=== PATIENT | male | born 1980 | race Two or more races ===

== ENCOUNTER 2020-12-21 23:42 | Inpatient (IN) | payer MEDICAID, OTHER ==
[~2020-12-21] VITALS: Ht 172.7 cm; Wt 74.3 kg
[2020-12-22] MEDS ORDERED: MORPHINE SULFATE 4 MG/ML SYR/VIAL IV ONE (00:15)
[2020-12-22] MEDS ORDERED: SODIUM CHLORIDE 0.9% 500 ML IVB ONE (00:15)
[2020-12-22 00:17] LABS: Urine Bacteria NONE SEEN /hpf (None Seen); Urine Blood Negative /uL (Negative); Urine Mucus FEW (None Seen); Urine Specific Gravity 1.014 (1.001-1.035); Urine WBC 1 /hpf (0 - 3)
[2020-12-22 00:20] LABS: Red Blood Cells 4.33 10^6/uL (4.5-5.90); Red Cell Distribution Width 15.5 % (11.8-14.3)
[2020-12-22 00:32] LABS: Albumin 2.7 g/dL (3.4-5.0); Amylase 61 U/L (25-115); Anion Gap 11 (5-15); Carbon Dioxide 24 mmol/L (21-32); Chloride 93 mmol/L (98-107); Glucose 193 mg/dL (74-106); Potassium 4.6 mmol/L (3.5-5.1); Sodium 128 mmol/L (136-145)
[2020-12-22 00:35] LABS: Bilirubin, Total 2.3 mg/dL (0.2-1.0); GFR African American 142 mL/min; GFR Non-African American 117 mL/min; Lipase 1111 U/L (73-393)
[2020-12-22 01:25] LABS: Hematocrit 41.8 % (41.0-53.0); Hemoglobin 16.2 g/dL (13.5-17.5); Mean Corpuscular Hemoglobin 37.4 pg (28.0-32.0); Mean Corpuscular Volume 96.5 fL (80.0-100.0)
[2020-12-22 01:30] LABS: BUN/Creatinine Ratio 12.8; Blood Urea Nitrogen 10 mg/dL (7-18); Total Protein 9.5 g/dL (6.4-8.2)
[2020-12-22 01:32] LABS: Basophils % (manual) 0 (0.0-2.0); Blast Cells 0; Mean Corpuscular Hgb Conc. 38.7 g/dL (32.0-36.0); Metamyelocytes % 0; Myelocytes % 0; Promyelocytes % 0; Reactive Lymphocytes 0
[2020-12-22 01:44] LABS: Alkaline Phosphatase 95 U/L (45-117)
[2020-12-22 02:05] LABS: Aspartate Aminotransferase 130 U/L (15-37)
[2020-12-22 02:08] LABS: Band Neutrophils % (manual) 3; Eosinophils % (manual) 1 (0-7); Lymphocytes % (manual) 30 (10.0-50.0); Monocytes % (manual) 3 (0-12)
[2020-12-22 02:23] LABS: Calcium < 5.0 mg/dL (8.5-10.1)
[2020-12-22] MEDS ORDERED: CALCIUM CHL 100MG/ML 2,000 MG in D5W 5% 100 ML IV ONE (02:45)
[2020-12-22] MEDS: ONDANSETRON HCL 4 MG/2 ML VIAL IV ONE ×2 (03:18→06:33)
[2020-12-22 03:34] LABS: Alanine Aminotransferase 75 U/L (16-61)
[2020-12-22] MEDS ORDERED: ONDANSETRON HCL 4 MG/2 ML VIAL ONE (06:27)
[2020-12-22] MEDS ORDERED: ONDANSETRON HCL 4 MG/2 ML VIAL IV ONE (10:15)
[2020-12-22 20:24] LABS: Albumin 2.6 g/dL (3.4-5.0); Calcium 8.1 mg/dL (8.5-10.1); Potassium 5.4 mmol/L (3.5-5.1)
[2020-12-22 20:34] LABS: Bilirubin, Total 3.9 mg/dL (0.2-1.0)
[2020-12-22 20:51] LABS: BUN/Creatinine Ratio 13.9; Total Protein 7.6 g/dL (6.4-8.2)
[2020-12-22] MEDS ORDERED: SODIUM ZIRCONIUM CYCL 10 GM PAK PO ONE (21:00)
[2020-12-22] MEDS ORDERED: PANTOPRAZOLE 40 MG/10 ML VIAL INJ IV ONE (21:00)
[2020-12-22] MEDS: SODIUM CHLORIDE 0.9% 1,000 ML IV SCH ×2 (21:00→22:00)
[2020-12-22] MEDS: ONDANSETRON HCL 4 MG/2 ML VIAL IV PRN (22:44)
[2020-12-22] MEDS: MORPHINE SULFATE 4 MG/ML SYR/VIAL IV PRN (22:44)
[2020-12-22] MEDS ORDERED: SODIUM CHLORIDE 0.9% 500 ML IV ONE (22:45)
[2020-12-23 07:28] LABS: Basophils # (auto) 0.1 10 ^3/uL (0-0.2); Basophils % (auto) 1.1 % (0.0-2.0); Eosinophils # (auto) 0 10 ^3/uL (0-0.8); Hematocrit 39.7 % (41.0-53.0); Hemoglobin 14.6 g/dL (13.5-17.5); Lymphocytes # (auto) 0.7 10 ^3/uL (0.4-5.4); Lymphocytes % (auto) 5.8 % (10.0-50.0); Mean Corpuscular Hemoglobin 36.1 pg (28.0-32.0); Mean Corpuscular Volume 98.3 fL (80.0-100.0); Monocytes # (auto) 0.8 10 ^3/uL (0-1.3); Monocytes % (auto) 6.6 % (0.0-12.0); Neutrophils # (auto) 11.1 10 ^3/uL (1.6-8.6); Neutrophils % (auto) 86.5 % (37.0-80.0); Nucleated Red Blood Cells % 0.1 %; Red Blood Cells 4.04 10^6/uL (4.5-5.90); White Blood Cell 12.9 10^3/uL (4.4-10.8)
[2020-12-23 07:29] LABS: Mean Corpuscular Hgb Conc. 36.8 g/dL (32.0-36.0)
[2020-12-23] MEDS: ONDANSETRON HCL 4 MG/2 ML VIAL IV PRN ×3 (07:50→09:41)
[2020-12-23] MEDS: MORPHINE SULFATE 4 MG/ML SYR/VIAL IV PRN ×5 (07:50→09:45)
[2020-12-23 07:56] LABS: Albumin 2.3 g/dL (3.4-5.0); Calcium 7.6 mg/dL (8.5-10.1); Potassium 4.9 mmol/L (3.5-5.1)
[2020-12-23 08:02] LABS: BUN/Creatinine Ratio 13.4; Bilirubin, Total 3.6 mg/dL (0.2-1.0); Total Protein 7.6 g/dL (6.4-8.2)
[2020-12-23] MEDS: PANTOPRAZOLE 40 MG/10 ML VIAL INJ IV SCH (10:13)
[2020-12-23] MEDS ORDERED: LORazepam 2MG/ML-1ML VIAL IV PRN (10:45)
[2020-12-23] MEDS ORDERED: LABETALOL HCL 5 MG/ML 4ML SYRINGE IV PRN ×2 (10:45)
[2020-12-23] MEDS: LACTATED RINGER'S 1,000 ML IV SCH ×2 (11:20→18:45)
[2020-12-23] MEDS ORDERED: MORPHINE SULFATE INJECTION 2 MG/ML SYRG IV PRN (11:45)
[2020-12-23] MEDS ORDERED: NITROGLYCERIN 0.4 MG SL TAB SL PRN (11:45)
[2020-12-23 12:40] VITALS: BP 141/87
[2020-12-23] MEDS: chlordiazePOXIDE HCL 25 MG CAP PO SCH ×2 (13:54→18:04)
[2020-12-23] MEDS: SODIUM CHLOR 0.9% PF (SALINE LOCK) 10ML VIAL/SYR IV SCH ×2 (15:01→21:51)
[2020-12-23 16:24] VITALS: BP 135/93
[2020-12-23] MEDS: FOLIC ACID 1 MG, MULTIPLE VITAMIN 10 ML, MAGNESIUM SULF SDV 50% 8 MEQ, THIAMINE INJ 100... INJ SCH ×5 (18:04)
[2020-12-23 22:00] VITALS: BP 126/92
[2020-12-24] MEDS: chlordiazePOXIDE HCL 25 MG CAP PO SCH ×4 (00:26→18:01)
[2020-12-24 05:00] VITALS: BP 133/85
[2020-12-24] MEDS: LACTATED RINGER'S 1,000 ML IV SCH ×3 (05:24→18:19)
[2020-12-24 05:35] LABS: Eosinophils # (auto) 0 10 ^3/uL (0-0.8); Neutrophils # (auto) 10.3 10 ^3/uL (1.6-8.6)
[2020-12-24 05:38] LABS: Basophils # (auto) 0 10 ^3/uL (0-0.2); Basophils % (auto) 0.3 % (0.0-2.0); Eosinophils % (auto) 0.3 % (0.0-7.0); Mean Corpuscular Hemoglobin 34.8 pg (28.0-32.0); Mean Corpuscular Volume 99.5 fL (80.0-100.0); Monocytes # (auto) 0.8 10 ^3/uL (0-1.3); Monocytes % (auto) 6.9 % (0.0-12.0); Neutrophils % (auto) 84.5 % (37.0-80.0); Red Blood Cells 4.02 10^6/uL (4.5-5.90); Red Cell Distribution Width 14.9 % (11.8-14.3); White Blood Cell 12.2 10^3/uL (4.4-10.8)
[2020-12-24] MEDS: SODIUM CHLOR 0.9% PF (SALINE LOCK) 10ML VIAL/SYR IV SCH ×3 (06:18→22:02)
[2020-12-24 07:17] LABS: Albumin 2.1 g/dL (3.4-5.0); Calcium 8.2 mg/dL (8.5-10.1)
[2020-12-24 07:20] LABS: Bilirubin, Total 3.3 mg/dL (0.2-1.0); Total Protein 7.4 g/dL (6.4-8.2)
[2020-12-24 07:31] LABS: BUN/Creatinine Ratio 16.8
[2020-12-24 09:00] VITALS: BP 130/81
[2020-12-24] MEDS ORDERED: cefTRIAXone 1GM/50ML D5W 50 ML IV SCH (09:00)
[2020-12-24] MEDS: PANTOPRAZOLE 40 MG/10 ML VIAL INJ IV SCH (10:28)
[2020-12-24] MEDS: ENOXAPARIN SOD 40 MG/0.4 ML SYRINGE SC SCH (10:36)
[2020-12-24 13:00] VITALS: BP 124/70
[2020-12-24] MEDS: FOLIC ACID 1 MG, MULTIPLE VITAMIN 10 ML, MAGNESIUM SULF SDV 50% 8 MEQ, THIAMINE INJ 100... INJ SCH ×5 (13:30)
[2020-12-24] MEDS: ACETAMINOPHEN 325 MG TAB PO PRN (16:05)
[2020-12-24 17:00] VITALS: BP 124/76
[2020-12-24 22:00] VITALS: BP 119/73
[2020-12-25] MEDS: chlordiazePOXIDE HCL 25 MG CAP PO SCH ×5 (00:30→23:16)
[2020-12-25] MEDS: LACTATED RINGER'S 1,000 ML IV SCH ×3 (01:13→22:45)
[2020-12-25 05:00] VITALS: BP 115/79
[2020-12-25] MEDS: SODIUM CHLOR 0.9% PF (SALINE LOCK) 10ML VIAL/SYR IV SCH ×3 (06:22→22:26)
[2020-12-25 06:23] LABS: Eosinophils # (auto) 0.2 10 ^3/uL (0-0.8); Red Cell Distribution Width 14.5 % (11.8-14.3)
[2020-12-25 06:25] LABS: Basophils # (auto) 0.1 10 ^3/uL (0-0.2); Basophils % (auto) 0.6 % (0.0-2.0); Eosinophils % (auto) 1.9 % (0.0-7.0); Hematocrit 34.6 % (41.0-53.0); Hemoglobin 12.2 g/dL (13.5-17.5); Lymphocytes # (auto) 1.1 10 ^3/uL (0.4-5.4); Lymphocytes % (auto) 11.4 % (10.0-50.0); Mean Corpuscular Hemoglobin 34.8 pg (28.0-32.0); Mean Corpuscular Hgb Conc. 35.1 g/dL (32.0-36.0); Mean Corpuscular Volume 99.1 fL (80.0-100.0); Monocytes # (auto) 0.9 10 ^3/uL (0-1.3); Neutrophils # (auto) 7.1 10 ^3/uL (1.6-8.6); Neutrophils % (auto) 76.1 % (37.0-80.0); Nucleated Red Blood Cells % 0.1 %; Red Blood Cells 3.49 10^6/uL (4.5-5.90); White Blood Cell 9.3 10^3/uL (4.4-10.8)
[2020-12-25 08:57] VITALS: BP 121/78
[2020-12-25] MEDS: PANTOPRAZOLE 40 MG/10 ML VIAL INJ IV SCH (10:12)
[2020-12-25] MEDS: ENOXAPARIN SOD 40 MG/0.4 ML SYRINGE SC SCH (10:12)
[2020-12-25] MEDS: FOLIC ACID 1 MG, MULTIPLE VITAMIN 10 ML, MAGNESIUM SULF SDV 50% 8 MEQ, THIAMINE INJ 100... INJ SCH ×5 (12:00)
[2020-12-25 12:38] VITALS: BP_SYST 119; BP_SYST 148; BP_DIAS 72; BP_DIAS 92
[2020-12-25 12:49] VITALS: BP 121/77
[2020-12-25 17:00] VITALS: BP 120/79
[2020-12-25 21:36] LABS: Albumin 1.9 g/dL (3.4-5.0); BUN/Creatinine Ratio 5.6; Potassium 3.9 mmol/L (3.5-5.1)
[2020-12-25 21:38] LABS: Bilirubin, Total 1.7 mg/dL (0.2-1.0); Total Protein 6.3 g/dL (6.4-8.2)
[2020-12-25 21:56] VITALS: BP 121/82
[2020-12-26 05:30] VITALS: BP 127/93
[2020-12-26] MEDS: SODIUM CHLOR 0.9% PF (SALINE LOCK) 10ML VIAL/SYR IV SCH ×3 (05:35→21:20)
[2020-12-26] MEDS: chlordiazePOXIDE HCL 25 MG CAP PO SCH ×4 (05:35→23:26)
[2020-12-26 09:00] VITALS: BP 121/78
[2020-12-26] MEDS: FOLIC ACID 1 MG TAB PO SCH (10:21)
[2020-12-26] MEDS: LABETALOL HCL 200 MG TAB PO SCH ×2 (10:22→21:19)
[2020-12-26] MEDS: THIAMINE HCL 100 MG TAB PO SCH (10:22)
[2020-12-26] MEDS: ENOXAPARIN SOD 40 MG/0.4 ML SYRINGE SC SCH (10:22)
[2020-12-26] MEDS: PANTOPRAZOLE 40 MG TAB PO SCH (10:23)
[2020-12-26 13:00] VITALS: BP 122/77
[2020-12-26] MEDS ORDERED: ENOXAPARIN SOD 60 MG/0.6 ML SYRINGE SC ONE (13:45)
[2020-12-26] MEDS ORDERED: IOHEXOL 350 MG/ML 100ML IJ ONE (16:04)
[2020-12-26 16:45] VITALS: BP 122/71
[2020-12-26] MEDS: SOD CHL 0.9%/ KCL 20MEQ 1,000 ML IV SCH (19:03)
[2020-12-26] MEDS: CEFEPIME 1 GM in SODIUM CHL 0.9% 50 ML IV SCH (19:28)
[2020-12-26] MEDS: ENOXAPARIN SOD 60 MG/0.6 ML SYRINGE SC SCH (21:10)
[2020-12-26 22:13] VITALS: BP 125/85
[2020-12-26] MEDS: metroNIDAZOLE 500MG/100ML 100 ML IV SCH (22:44)
[2020-12-27] MEDS: CEFEPIME 1 GM in SODIUM CHL 0.9% 50 ML IV SCH ×3 (03:41→21:34)
[2020-12-27] MEDS: SOD CHL 0.9%/ KCL 20MEQ 1,000 ML IV SCH ×3 (04:45→19:02)
[2020-12-27 05:30] VITALS: BP 126/81
[2020-12-27] MEDS: chlordiazePOXIDE HCL 25 MG CAP PO SCH ×3 (06:00→17:56)
[2020-12-27] MEDS: SODIUM CHLOR 0.9% PF (SALINE LOCK) 10ML VIAL/SYR IV SCH (06:06)
[2020-12-27] MEDS: metroNIDAZOLE 500MG/100ML 100 ML IV SCH ×2 (06:35→16:14)
[2020-12-27 09:00] VITALS: BP 125/75
[2020-12-27] MEDS: THIAMINE HCL 100 MG TAB PO SCH (09:43)
[2020-12-27] MEDS: FOLIC ACID 1 MG TAB PO SCH (09:43)
[2020-12-27] MEDS: LABETALOL HCL 200 MG TAB PO SCH ×2 (09:44→22:00)
[2020-12-27] MEDS: PANTOPRAZOLE 40 MG TAB PO SCH (09:45)
[2020-12-27] MEDS: ENOXAPARIN SOD 60 MG/0.6 ML SYRINGE SC SCH (09:45)
[2020-12-27 13:00] VITALS: BP 125/81
[2020-12-27 17:00] VITALS: BP 130/77
[2020-12-27 20:00] VITALS: BP 113/70
[2020-12-27] MEDS: ACETAMINOPHEN 325 MG TAB PO PRN (21:42)
[2020-12-27 22:00] VITALS: BP 113/70
[2020-12-28] MEDS: metroNIDAZOLE 500MG/100ML 100 ML IV SCH ×3 (00:24→18:05)
[2020-12-28] MEDS: chlordiazePOXIDE HCL 25 MG CAP PO SCH ×5 (00:25→23:04)
[2020-12-28] MEDS: CEFEPIME 1 GM in SODIUM CHL 0.9% 50 ML IV SCH ×3 (04:00→20:03)
[2020-12-28 05:00] VITALS: BP 112/71
[2020-12-28 06:04] LABS: Hematocrit 32.2 % (41.0-53.0); Hemoglobin 11.3 g/dL (13.5-17.5); Mean Corpuscular Hemoglobin 35.3 pg (28.0-32.0); Mean Corpuscular Hgb Conc. 35.2 g/dL (32.0-36.0); Mean Corpuscular Volume 100.2 fL (80.0-100.0); Red Blood Cells 3.21 10^6/uL (4.5-5.90); Red Cell Distribution Width 14.3 % (11.8-14.3); White Blood Cell 10.7 10^3/uL (4.4-10.8)
[2020-12-28 06:12] LABS: Basophils % (manual) 0 (0.0-2.0); Blast Cells 0; Myelocytes % 0; Promyelocytes % 0; Reactive Lymphocytes 0
[2020-12-28 06:14] LABS: Potassium 3.9 mmol/L (3.5-5.1)
[2020-12-28 06:19] LABS: Albumin 1.8 g/dL (3.4-5.0); BUN/Creatinine Ratio 8.3; Calcium 8.4 mg/dL (8.5-10.1)
[2020-12-28 06:22] LABS: Total Protein 6.3 g/dL (6.4-8.2)
[2020-12-28 06:37] LABS: Band Neutrophils % (manual) 7; Eosinophils % (manual) 4 (0-7); Lymphocytes % (manual) 15 (10.0-50.0); Metamyelocytes % 2; Monocytes % (manual) 9 (0-12)
[2020-12-28] MEDS: SOD CHL 0.9%/ KCL 20MEQ 1,000 ML IV SCH ×2 (06:59→07:08)
[2020-12-28 09:00] VITALS: BP 129/88
[2020-12-28] MEDS: FOLIC ACID 1 MG TAB PO SCH (09:35)
[2020-12-28] MEDS: PANTOPRAZOLE 40 MG TAB PO SCH (09:35)
[2020-12-28] MEDS: THIAMINE HCL 100 MG TAB PO SCH (09:36)
[2020-12-28] MEDS: ENOXAPARIN SOD 40 MG/0.4 ML SYRINGE SC SCH (09:37)
[2020-12-28] MEDS: LABETALOL HCL 200 MG TAB PO SCH ×2 (09:38→23:04)
[2020-12-28 13:00] VITALS: BP 115/88
[2020-12-28 17:00] VITALS: BP 119/81
[2020-12-28 22:00] VITALS: BP 114/70
[2020-12-29] MEDS: metroNIDAZOLE 500MG/100ML 100 ML IV SCH ×2 (02:36→11:20)
[2020-12-29] MEDS: CEFEPIME 1 GM in SODIUM CHL 0.9% 50 ML IV SCH ×2 (04:12→12:34)
[2020-12-29 05:00] VITALS: BP 110/71
[2020-12-29] MEDS: chlordiazePOXIDE HCL 25 MG CAP PO SCH ×4 (06:02→22:43)
[2020-12-29] MEDS: SOD CHL 0.9%/ KCL 20MEQ 1,000 ML IV SCH ×2 (06:03→15:28)
[2020-12-29] MEDS ORDERED: IOHEXOL 300 MG/ML 100ML BOTTLE IJ ONE (06:25)
[2020-12-29 09:00] VITALS: BP 116/75
[2020-12-29] MEDS: FOLIC ACID 1 MG TAB PO SCH (09:15)
[2020-12-29] MEDS: THIAMINE HCL 100 MG TAB PO SCH (09:16)
[2020-12-29] MEDS: ENOXAPARIN SOD 40 MG/0.4 ML SYRINGE SC SCH (09:17)
[2020-12-29] MEDS: LABETALOL HCL 200 MG TAB PO SCH ×2 (09:17→22:44)
[2020-12-29] MEDS: PANTOPRAZOLE 40 MG TAB PO SCH (09:17)
[2020-12-29 13:00] VITALS: BP 108/75
[2020-12-29] MEDS ORDERED: MEROPENEM 1GM IVPB 100 ML IV ONE (14:15)
[2020-12-29 16:57] VITALS: BP 124/82
[2020-12-29] MEDS ORDERED: LORazepam 2MG/ML-1ML VIAL IV PRN (19:00)
[2020-12-29 22:00] VITALS: BP 119/75
[2020-12-29] MEDS: MEROPENEM 1GM IVPB 100 ML IV SCH (22:43)
[2020-12-30] MEDS: SOD CHL 0.9%/ KCL 20MEQ 1,000 ML IV SCH ×3 (04:18→21:25)
[2020-12-30 05:00] VITALS: BP 120/79
[2020-12-30] MEDS: MEROPENEM 1GM IVPB 100 ML IV SCH ×3 (05:38→21:24)
[2020-12-30] MEDS: chlordiazePOXIDE HCL 25 MG CAP PO SCH (05:39)
[2020-12-30 06:55] LABS: INR 0.99 (0.9-1.15); Partial Thromboplastin Time 26.6 sec (23.6-33.0)
[2020-12-30 07:00] LABS: Eosinophils # (auto) 0.5 10 ^3/uL (0-0.8); Hemoglobin 11.1 g/dL (13.5-17.5); Lymphocytes # (auto) 1.3 10 ^3/uL (0.4-5.4); Lymphocytes % (auto) 10.6 % (10.0-50.0); Nucleated Red Blood Cells % 0.1 %; White Blood Cell 12.2 10^3/uL (4.4-10.8)
[2020-12-30 07:03] LABS: Basophils # (auto) 0 10 ^3/uL (0-0.2); Basophils % (auto) 0.4 % (0.0-2.0); Eosinophils % (auto) 3.8 % (0.0-7.0); Mean Corpuscular Hemoglobin 34.7 pg (28.0-32.0); Mean Corpuscular Hgb Conc. 34.7 g/dL (32.0-36.0); Monocytes # (auto) 1.4 10 ^3/uL (0-1.3); Monocytes % (auto) 11.4 % (0.0-12.0); Neutrophils % (auto) 73.8 % (37.0-80.0); Red Cell Distribution Width 13.9 % (11.8-14.3)
[2020-12-30 07:18] LABS: Calcium 8.7 mg/dL (8.5-10.1); Magnesium 2.3 mg/dL (1.6-2.6)
[2020-12-30 07:22] LABS: BUN/Creatinine Ratio 8.5; Bilirubin, Total 0.4 mg/dL (0.2-1.0); Phosphorus 3.3 mg/dL (2.5-4.90); Total Protein 6.6 g/dL (6.4-8.2)
[2020-12-30 08:30] VITALS: BP 116/65
[2020-12-30] MEDS ORDERED: TPN PER PHARMACY 0 ML IV SCH (08:45)
[2020-12-30 09:00] VITALS: BP 116/65
[2020-12-30] MEDS: PANTOPRAZOLE 40 MG TAB PO SCH (10:00)
[2020-12-30] MEDS: THIAMINE HCL 100 MG TAB PO SCH (10:00)
[2020-12-30] MEDS: FOLIC ACID 1 MG TAB PO SCH (10:00)
[2020-12-30] MEDS: ENOXAPARIN SOD 40 MG/0.4 ML SYRINGE SC SCH (10:00)
[2020-12-30 10:22] LABS: Pre Albumin 10.6 mg/dL (20.0-40.0)
[2020-12-30] MEDS: chlordiazePOXIDE HCL 5 MG CAP PO SCH ×3 (12:00→21:25)
[2020-12-30 13:00] VITALS: BP 113/74
[2020-12-30] MEDS ORDERED: LIDOCAINE 2%HCL (LOCAL ANESTH.) INJ 20ML MDV ONE (13:07)
[2020-12-30] MEDS ORDERED: MIDAZOLAM HCL 2MG/2ML 2ml VIAL (1mg/ml) ONE (13:16)
[2020-12-30] MEDS ORDERED: fentaNYL CITRATE 100 MCG/2 ML VL ONE (13:16)
[2020-12-30 17:00] VITALS: BP 117/80
[2020-12-30] MEDS: HYDROcodone-ACET 5/325MG TAB PO PRN (17:37)
[2020-12-30] MEDS ORDERED: PPN PER PHARMACY IV NR ×7 (20:00)
[2020-12-30 22:00] VITALS: BP 107/69
[2020-12-31] MEDS ORDERED: DEXTROSE (50%) 50ML SYRG IV SCH
[2020-12-31] MEDS: MORPHINE SULFATE 4 MG/ML SYR/VIAL IV PRN (01:24)
[2020-12-31 05:00] VITALS: BP 101/68
[2020-12-31] MEDS: ACCU-CHEK COMFORT CURVE STRIP VI SCH ×4 (05:09→18:22)
[2020-12-31] MEDS: chlordiazePOXIDE HCL 5 MG CAP PO SCH ×4 (05:09→21:25)
[2020-12-31] MEDS: InsuLIN REG 1unit/0.01ml Soln (100units/ml) SC SCH ×4 (05:09→18:00)
[2020-12-31 06:45] LABS: Albumin 2.2 g/dL (3.4-5.0); Calcium 8.6 mg/dL (8.5-10.1); Magnesium 2.9 mg/dL (1.6-2.6); Potassium 4.1 mmol/L (3.5-5.1)
[2020-12-31 06:47] LABS: BUN/Creatinine Ratio 15.4
[2020-12-31 06:49] LABS: Bilirubin, Total 0.5 mg/dL (0.2-1.0); Phosphorus 2.6 mg/dL (2.5-4.90); Total Protein 7.1 g/dL (6.4-8.2)
[2020-12-31] MEDS: MEROPENEM 1GM IVPB 100 ML IV SCH ×3 (06:53→21:25)
[2020-12-31 08:30] VITALS: BP 125/83
[2020-12-31] MEDS: SOD CHL 0.9%/ KCL 20MEQ 1,000 ML IV SCH (08:45)
[2020-12-31 09:00] VITALS: BP 125/83
[2020-12-31] MEDS: PANTOPRAZOLE 40 MG TAB PO SCH (10:26)
[2020-12-31] MEDS: FOLIC ACID 1 MG TAB PO SCH (10:26)
[2020-12-31] MEDS: THIAMINE HCL 100 MG TAB PO SCH (10:27)
[2020-12-31] MEDS: ENOXAPARIN SOD 40 MG/0.4 ML SYRINGE SC SCH (10:27)
[2020-12-31] MEDS ORDERED: LIDOCAINE 1% (LOCAL ANESTH.) PF 5ml SDV ID ONE (14:15)
[2020-12-31] MEDS: HYDROcodone-ACET 5/325MG TAB PO PRN (15:11)
[2020-12-31 17:00] VITALS: BP 115/75
[2020-12-31] MEDS ORDERED: PPN PER PHARMACY IV NR ×7 (20:00)
[2020-12-31] MEDS: SODIUM CHLOR 0.9% PF (SALINE LOCK) 10ML VIAL/SYR IV SCH (21:25)
[2020-12-31 22:00] VITALS: BP 106/63
[2021-01-01] MEDS: ACCU-CHEK COMFORT CURVE STRIP VI SCH ×5 (00:08→23:26)
[2021-01-01] MEDS: HYDROcodone-ACET 5/325MG TAB PO PRN ×2 (02:46→10:14)
[2021-01-01 05:00] VITALS: BP 120/74
[2021-01-01] MEDS: InsuLIN REG 1unit/0.01ml Soln (100units/ml) SC SCH ×5 (06:30→23:26)
[2021-01-01] MEDS: MEROPENEM 1GM IVPB 100 ML IV SCH (06:30)
[2021-01-01] MEDS: chlordiazePOXIDE HCL 5 MG CAP PO SCH ×3 (06:30→21:13)
[2021-01-01 07:08] LABS: Potassium 4.1 mmol/L (3.5-5.1)
[2021-01-01 07:18] LABS: Albumin 2.4 g/dL (3.4-5.0); BUN/Creatinine Ratio 17.6; Bilirubin, Total 0.4 mg/dL (0.2-1.0); Calcium 9.3 mg/dL (8.5-10.1); Magnesium 2.6 mg/dL (1.6-2.6); Total Protein 7.4 g/dL (6.4-8.2)
[2021-01-01 09:00] VITALS: BP 116/75
[2021-01-01] MEDS: PANTOPRAZOLE 40 MG TAB PO SCH (10:00)
[2021-01-01] MEDS: FOLIC ACID 1 MG TAB PO SCH (10:00)
[2021-01-01] MEDS: ENOXAPARIN SOD 40 MG/0.4 ML SYRINGE SC SCH (10:01)
[2021-01-01] MEDS: THIAMINE HCL 100 MG TAB PO SCH (10:02)
[2021-01-01 12:57] VITALS: BP 116/86
[2021-01-01] MEDS: SODIUM CHLOR 0.9% PF (SALINE LOCK) 10ML VIAL/SYR IV SCH ×2 (14:09→21:13)
[2021-01-01] MEDS: metroNIDAZOLE 500MG/100ML 100 ML IV SCH ×2 (14:27→21:12)
[2021-01-01] MEDS: SODIUM CHLORIDE 0.9% 1,000 ML IV SCH (14:34)
[2021-01-01 17:00] VITALS: BP 121/92
[2021-01-01] MEDS ORDERED: TPN PER PHARMACY IV NR ×7 (20:00)
[2021-01-01] MEDS: MORPHINE SULFATE 4 MG/ML SYR/VIAL IV PRN (20:22)
[2021-01-01 22:00] VITALS: BP 116/79
[2021-01-02] MEDS: SODIUM CHLORIDE 0.9% 1,000 ML IV SCH (02:25)
[2021-01-02 05:00] VITALS: BP 117/78
[2021-01-02 05:32] LABS: Red Blood Cells 3.41 10^6/uL (4.5-5.90)
[2021-01-02 05:34] LABS: Hematocrit 33.4 % (41.0-53.0); Hemoglobin 11.4 g/dL (13.5-17.5); Mean Corpuscular Hemoglobin 33.5 pg (28.0-32.0); Mean Corpuscular Hgb Conc. 34.2 g/dL (32.0-36.0)
[2021-01-02] MEDS: chlordiazePOXIDE HCL 5 MG CAP PO SCH ×3 (05:43→20:58)
[2021-01-02] MEDS: metroNIDAZOLE 500MG/100ML 100 ML IV SCH ×3 (05:43→20:56)
[2021-01-02] MEDS: ACCU-CHEK COMFORT CURVE STRIP VI SCH ×4 (05:57→23:56)
[2021-01-02] MEDS: InsuLIN REG 1unit/0.01ml Soln (100units/ml) SC SCH ×4 (05:57→23:56)
[2021-01-02 06:03] LABS: Basophils % (manual) 0 (0.0-2.0); Blast Cells 0; Promyelocytes % 0; Reactive Lymphocytes 0
[2021-01-02 06:06] LABS: Albumin 2.4 g/dL (3.4-5.0); Calcium 8.9 mg/dL (8.5-10.1); Magnesium 2.1 mg/dL (1.6-2.6); Potassium 4.1 mmol/L (3.5-5.1)
[2021-01-02 06:12] LABS: BUN/Creatinine Ratio 16.7; Bilirubin, Total 0.3 mg/dL (0.2-1.0); Phosphorus 2.9 mg/dL (2.5-4.90); Total Protein 7.1 g/dL (6.4-8.2)
[2021-01-02 08:15] LABS: Band Neutrophils % (manual) 1; Eosinophils % (manual) 5 (0-7); Lymphocytes % (manual) 14 (10.0-50.0); Metamyelocytes % 1; Monocytes % (manual) 3 (0-12); Myelocytes % 2
[2021-01-02 09:00] VITALS: BP 118/75
[2021-01-02] MEDS: levoFLOXacin 500MG 100 ML IV SCH (10:04)
[2021-01-02] MEDS: THIAMINE HCL 100 MG TAB PO SCH (10:05)
[2021-01-02] MEDS: ENOXAPARIN SOD 40 MG/0.4 ML SYRINGE SC SCH (10:05)
[2021-01-02] MEDS: FOLIC ACID 1 MG TAB PO SCH (10:05)
[2021-01-02] MEDS: PANTOPRAZOLE 40 MG TAB PO SCH (10:05)
[2021-01-02] MEDS: SODIUM CHLOR 0.9% PF (SALINE LOCK) 10ML VIAL/SYR IV SCH ×2 (10:06→20:58)
[2021-01-02] MEDS: GEMFIBROZIL 600 MG TAB PO SCH (12:41)
[2021-01-02 13:00] VITALS: BP 113/69
[2021-01-02 16:57] VITALS: BP 108/75
[2021-01-02] MEDS ORDERED: TPN PER PHARMACY IV NR ×7 (20:00)
[2021-01-02 22:00] VITALS: BP 108/77
[2021-01-03] MEDS: MORPHINE SULFATE 4 MG/ML SYR/VIAL IV PRN (02:57)
[2021-01-03] MEDS: SODIUM CHLORIDE 0.9% 1,000 ML IV SCH ×2 (04:54→12:30)
[2021-01-03 05:00] VITALS: BP 123/79
[2021-01-03] MEDS: metroNIDAZOLE 500MG/100ML 100 ML IV SCH ×3 (05:40→22:08)
[2021-01-03] MEDS: chlordiazePOXIDE HCL 5 MG CAP PO SCH ×3 (05:41→22:09)
[2021-01-03] MEDS: HYDROcodone-ACET 5/325MG TAB PO PRN (05:44)
[2021-01-03] MEDS: InsuLIN REG 1unit/0.01ml Soln (100units/ml) SC SCH ×3 (05:53→23:37)
[2021-01-03] MEDS: ACCU-CHEK COMFORT CURVE STRIP VI SCH ×3 (05:53→23:37)
[2021-01-03 05:58] LABS: Albumin 2.5 g/dL (3.4-5.0); Calcium 8.6 mg/dL (8.5-10.1); Magnesium 2.4 mg/dL (1.6-2.6)
[2021-01-03 06:03] LABS: BUN/Creatinine Ratio 15.7; Bilirubin, Total 0.3 mg/dL (0.2-1.0); Phosphorus 2.8 mg/dL (2.5-4.90); Total Protein 7.2 g/dL (6.4-8.2)
[2021-01-03] MEDS: GEMFIBROZIL 600 MG TAB PO SCH (06:47)
[2021-01-03 08:47] VITALS: BP 113/80
[2021-01-03] MEDS: levoFLOXacin 500MG 100 ML IV SCH (12:39)
[2021-01-03] MEDS: SODIUM CHLOR 0.9% PF (SALINE LOCK) 10ML VIAL/SYR IV SCH ×2 (12:40→22:09)
[2021-01-03] MEDS: ENOXAPARIN SOD 40 MG/0.4 ML SYRINGE SC SCH (12:40)
[2021-01-03] MEDS: FOLIC ACID 1 MG TAB PO SCH (12:40)
[2021-01-03] MEDS: THIAMINE HCL 100 MG TAB PO SCH (12:40)
[2021-01-03] MEDS: PANTOPRAZOLE 40 MG TAB PO SCH (12:40)
[2021-01-03 13:00] VITALS: BP 117/84
[2021-01-03] MEDS ORDERED: TPN PER PHARMACY 0 ML IV SCH (13:00)
[2021-01-03] MEDS ORDERED: DEXTROSE (50%) 50ML SYRG IV SCH (13:45)
[2021-01-03 17:00] VITALS: BP 126/85
[2021-01-03] MEDS ORDERED: TPN PER PHARMACY IV NR ×5 (20:00)
[2021-01-03 22:00] VITALS: BP 118/76
[2021-01-04 05:00] VITALS: BP 107/72
[2021-01-04 05:11] LABS: Basophils # (auto) 0.1 10 ^3/uL (0-0.2); Hemoglobin 11.7 g/dL (13.5-17.5); Lymphocytes # (auto) 1.4 10 ^3/uL (0.4-5.4); Neutrophils # (auto) 10.3 10 ^3/uL (1.6-8.6); Nucleated Red Blood Cells % 0.1 %; Red Cell Distribution Width 13.9 % (11.8-14.3); White Blood Cell 13.4 10^3/uL (4.4-10.8)
[2021-01-04 05:14] LABS: Basophils % (auto) 0.9 % (0.0-2.0); Eosinophils # (auto) 0.5 10 ^3/uL (0-0.8); Eosinophils % (auto) 3.9 % (0.0-7.0); Lymphocytes % (auto) 10.2 % (10.0-50.0); Mean Corpuscular Hemoglobin 33.5 pg (28.0-32.0); Mean Corpuscular Hgb Conc. 34.4 g/dL (32.0-36.0); Mean Corpuscular Volume 97.6 fL (80.0-100.0); Monocytes # (auto) 1.1 10 ^3/uL (0-1.3); Monocytes % (auto) 7.9 % (0.0-12.0); Neutrophils % (auto) 77.1 % (37.0-80.0); Red Blood Cells 3.48 10^6/uL (4.5-5.90)
[2021-01-04 05:25] LABS: Albumin 2.6 g/dL (3.4-5.0); Calcium 8.9 mg/dL (8.5-10.1); Magnesium 2.2 mg/dL (1.6-2.6); Potassium 4.1 mmol/L (3.5-5.1)
[2021-01-04 05:30] LABS: BUN/Creatinine Ratio 12.9; Bilirubin, Total 0.4 mg/dL (0.2-1.0); Phosphorus 3.1 mg/dL (2.5-4.90); Total Protein 7.3 g/dL (6.4-8.2)
[2021-01-04 05:33] LABS: Pre Albumin 23.1 mg/dL (20.0-40.0)
[2021-01-04] MEDS: SODIUM CHLORIDE 0.9% 1,000 ML IV SCH ×2 (05:59→21:35)
[2021-01-04] MEDS: InsuLIN REG 1unit/0.01ml Soln (100units/ml) SC SCH ×3 (06:00→17:59)
[2021-01-04] MEDS: metroNIDAZOLE 500MG/100ML 100 ML IV SCH ×3 (06:00→21:35)
[2021-01-04] MEDS: ACCU-CHEK COMFORT CURVE STRIP VI SCH ×3 (06:01→17:58)
[2021-01-04] MEDS: chlordiazePOXIDE HCL 5 MG CAP PO SCH ×3 (06:01→21:35)
[2021-01-04] MEDS: GEMFIBROZIL 600 MG TAB PO SCH (06:39)
[2021-01-04 09:00] VITALS: BP 107/69
[2021-01-04] MEDS: levoFLOXacin 500MG 100 ML IV SCH (09:20)
[2021-01-04] MEDS: SODIUM CHLOR 0.9% PF (SALINE LOCK) 10ML VIAL/SYR IV SCH ×2 (09:20→21:35)
[2021-01-04] MEDS: THIAMINE HCL 100 MG TAB PO SCH (09:21)
[2021-01-04] MEDS: FOLIC ACID 1 MG TAB PO SCH (09:21)
[2021-01-04] MEDS: PANTOPRAZOLE 40 MG TAB PO SCH (09:22)
[2021-01-04] MEDS: ASPirin-EC 81 mg tab PO SCH (09:38)
[2021-01-04] MEDS: ENOXAPARIN SOD 40 MG/0.4 ML SYRINGE SC SCH (09:39)
[2021-01-04] MEDS ORDERED: ENOXAPARIN SOD 40 MG/0.4 ML SYRINGE SC SCH (10:00)
[2021-01-04 12:40] VITALS: BP 113/76
[2021-01-04] MEDS ORDERED: TPN PER PHARMACY IV NR ×6 (20:00)
[2021-01-04 22:00] VITALS: BP 112/74
[2021-01-05] MEDS: ACCU-CHEK COMFORT CURVE STRIP VI SCH ×2 (00:10→06:22)
[2021-01-05 05:00] VITALS: BP 113/74
[2021-01-05] MEDS: InsuLIN REG 1unit/0.01ml Soln (100units/ml) SC SCH ×2 (06:00)
[2021-01-05 06:08] LABS: Hemoglobin 11.4 g/dL (13.5-17.5)
[2021-01-05 06:12] LABS: Hematocrit 32.8 % (41.0-53.0); Mean Corpuscular Hemoglobin 33.9 pg (28.0-32.0); Mean Corpuscular Hgb Conc. 34.6 g/dL (32.0-36.0); Red Blood Cells 3.35 10^6/uL (4.5-5.90); Red Cell Distribution Width 13.9 % (11.8-14.3); White Blood Cell 13.3 10^3/uL (4.4-10.8)
[2021-01-05] MEDS: metroNIDAZOLE 500MG/100ML 100 ML IV SCH ×3 (06:22→21:52)
[2021-01-05] MEDS: chlordiazePOXIDE HCL 5 MG CAP PO SCH (06:22)
[2021-01-05] MEDS: GEMFIBROZIL 600 MG TAB PO SCH (06:23)
[2021-01-05 06:26] LABS: Basophils % (manual) 0 (0.0-2.0); Blast Cells 0; Calcium 8.9 mg/dL (8.5-10.1); Myelocytes % 0; Potassium 4.2 mmol/L (3.5-5.1); Promyelocytes % 0; Reactive Lymphocytes 0
[2021-01-05 06:32] LABS: Albumin 2.5 g/dL (3.4-5.0); BUN/Creatinine Ratio 13.9; Bilirubin, Total 0.3 mg/dL (0.2-1.0); Magnesium 2.2 mg/dL (1.6-2.6); Phosphorus 2.9 mg/dL (2.5-4.90)
[2021-01-05 07:34] LABS: Band Neutrophils % (manual) 4; Eosinophils % (manual) 2 (0-7); Lymphocytes % (manual) 20 (10.0-50.0); Metamyelocytes % 2; Monocytes % (manual) 4 (0-12)
[2021-01-05 08:30] VITALS: BP 117/67
[2021-01-05 09:00] VITALS: BP 117/67
[2021-01-05] MEDS: PANTOPRAZOLE 40 MG TAB PO SCH (09:43)
[2021-01-05] MEDS: THIAMINE HCL 100 MG TAB PO SCH (09:43)
[2021-01-05] MEDS: ASPirin-EC 81 mg tab PO SCH (09:43)
[2021-01-05] MEDS: FOLIC ACID 1 MG TAB PO SCH (09:43)
[2021-01-05] MEDS: levoFLOXacin 500MG 100 ML IV SCH (09:44)
[2021-01-05] MEDS: SODIUM CHLOR 0.9% PF (SALINE LOCK) 10ML VIAL/SYR IV SCH ×2 (09:44→21:52)
[2021-01-05] MEDS ORDERED: chlordiazePOXIDE HCL 5 MG CAP PO PRN (11:15)
[2021-01-05] MEDS: ENOXAPARIN SOD 40 MG/0.4 ML SYRINGE SC SCH (12:48)
[2021-01-05 13:02] VITALS: BP 97/63
[2021-01-05 16:56] VITALS: BP 126/86
[2021-01-05 22:00] VITALS: BP 117/76
[2021-01-06] VITALS (7 sets, daily range): BP systolic 109–119; BP diastolic 62–86
[2021-01-06 05:16] LABS: Hematocrit 32.4 % (41.0-53.0); Hemoglobin 11.5 g/dL (13.5-17.5); Mean Corpuscular Hemoglobin 34.5 pg (28.0-32.0); Mean Corpuscular Hgb Conc. 35.5 g/dL (32.0-36.0); Mean Corpuscular Volume 97.3 fL (80.0-100.0); Red Blood Cells 3.33 10^6/uL (4.5-5.90); Red Cell Distribution Width 14.1 % (11.8-14.3); White Blood Cell 12.6 10^3/uL (4.4-10.8)
[2021-01-06 06:12] LABS: Basophils % (manual) 0 (0.0-2.0); Blast Cells 0; Myelocytes % 0; Promyelocytes % 0; Reactive Lymphocytes 0
[2021-01-06] MEDS: GEMFIBROZIL 600 MG TAB PO SCH (06:19)
[2021-01-06] MEDS: metroNIDAZOLE 500MG/100ML 100 ML IV SCH ×3 (06:19→22:41)
[2021-01-06 08:03] LABS: Band Neutrophils % (manual) 3; Eosinophils % (manual) 4 (0-7); Lymphocytes % (manual) 12 (10.0-50.0); Metamyelocytes % 1; Monocytes % (manual) 12 (0-12)
[2021-01-06] MEDS: FOLIC ACID 1 MG TAB PO SCH (09:42)
[2021-01-06] MEDS: ASPirin-EC 81 mg tab PO SCH (09:42)
[2021-01-06] MEDS: THIAMINE HCL 100 MG TAB PO SCH (09:42)
[2021-01-06] MEDS: PANTOPRAZOLE 40 MG TAB PO SCH (09:42)
[2021-01-06] MEDS: levoFLOXacin 500MG 100 ML IV SCH (09:43)
[2021-01-06] MEDS: SODIUM CHLOR 0.9% PF (SALINE LOCK) 10ML VIAL/SYR IV SCH ×2 (09:43→20:33)
[2021-01-06] MEDS: ENOXAPARIN SOD 40 MG/0.4 ML SYRINGE SC SCH (09:43)
[2021-01-07 05:18] LABS: Hemoglobin 11.9 g/dL (13.5-17.5); Mean Corpuscular Hemoglobin 33.7 pg (28.0-32.0); Mean Corpuscular Volume 96.2 fL (80.0-100.0); Red Blood Cells 3.53 10^6/uL (4.5-5.90); Red Cell Distribution Width 13.6 % (11.8-14.3); White Blood Cell 12.1 10^3/uL (4.4-10.8)
[2021-01-07 05:37] LABS: Basophils % (manual) 0 (0.0-2.0); Blast Cells 0; Metamyelocytes % 0; Promyelocytes % 0; Reactive Lymphocytes 0
[2021-01-07 06:33] LABS: Band Neutrophils % (manual) 4; Eosinophils % (manual) 4 (0-7); Lymphocytes % (manual) 15 (10.0-50.0); Monocytes % (manual) 5 (0-12); Myelocytes % 1
[2021-01-07] MEDS: metroNIDAZOLE 500MG/100ML 100 ML IV SCH (06:55)
[2021-01-07] MEDS: GEMFIBROZIL 600 MG TAB PO SCH (06:55)
[2021-01-07 07:55] VITALS: BP 118/84
[2021-01-07 09:00] VITALS: BP 118/84
[2021-01-07] MEDS ORDERED: MULTTAB75 PO (09:11)
[2021-01-07] MEDS ORDERED: GEMF-19 PO (09:11)
[2021-01-07] MEDS ORDERED: PANT40T PO (09:11)
[2021-01-07] MEDS: ASPirin-EC 81 mg tab PO SCH (09:23)
[2021-01-07] MEDS: FOLIC ACID 1 MG TAB PO SCH (09:23)
[2021-01-07] MEDS: PANTOPRAZOLE 40 MG TAB PO SCH (09:23)
[2021-01-07] MEDS: THIAMINE HCL 100 MG TAB PO SCH (09:23)
[2021-01-07] MEDS: ENOXAPARIN SOD 40 MG/0.4 ML SYRINGE SC SCH (09:24)
[2021-01-07] MEDS: SODIUM CHLOR 0.9% PF (SALINE LOCK) 10ML VIAL/SYR IV SCH (09:25)
[2021-01-07] MEDS: levoFLOXacin 500MG 100 ML IV SCH (09:35)
[2021-01-07 11:25] VITALS: BP 118/84
[2021-01-07 12:58] VITALS: BP 105/68
== END 2021-01-07 14:00 | disposition home or self-care (01) | DRG 438 ==
LOC: ER 23:44 → OVERFLOW 12-22 20:51 → WEST WING 12-23 12:04 → TELE-WESTW 12-24 00:03 → WEST WING 01-01 02:57
PROVIDERS: ADMIT Nurse Practitioner; ATTEND Internal Medicine
PROC: 0W9F30Z Drainage of Abdominal Wall with Drainage Device, Percutaneous Approach (ICD-10-PCS; principal; 2020-12-30)
PROC: 05H933Z Insertion of Infusion Device into Right Brachial Vein, Percutaneous Approach (ICD-10-PCS; 2020-12-31)
PROC: B54MZZA Ultrasonography of Right Upper Extremity Veins, Guidance (ICD-10-PCS; 2020-12-31)
DX: K85.20 Alcohol induced acute pancreatitis without necrosis or infection (principal); E43 Unspecified severe protein-calorie malnutrition; E87.1 Hypo-osmolality and hyponatremia; R65.10 Systemic inflammatory response syndrome (SIRS) of non-infectious origin without acute organ dysfunction; F10.231 Alcohol dependence with withdrawal delirium; J90 Pleural effusion, not elsewhere classified; E83.51 Hypocalcemia; K74.60 Unspecified cirrhosis of liver; E78.1 Pure hyperglyceridemia; D72.828 Other elevated white blood cell count; F41.9 Anxiety disorder, unspecified; Z20.822 Contact with and (suspected) exposure to COVID-19; Z68.23 Body mass index [BMI] 23.0-23.9, adult
CPT/HCPCS: 10022; 36415; 36569; 71045; 71275; 74150; 74176; 74177; 74181; 76705; 77012; 80053; 80320; 81001; 82040; 82150; 82728; 82962; 83690; 83735; 84100; 84478; 85007; 85025; 85027; 85379; 85610; 85730; 86141; 87040; 87205; 87426; 89051; 93005; 93970; 96365; 96375; C1729; C9113; G0378; J0696; J1815; J1956; J2185; J2250; J2405; J3490; J7060; J7131